=== PATIENT | male | born 1980 | race Two or more races ===

== ENCOUNTER → 2024-11-18 | Outpatient (CLI) | payer MEDICAID, SELFPAY ==
--- NOTE | 2024-11-18 10:34 | XR_ITS ---
Examination: Abdomen AP single view Technique: AP portable supine abdomen, single view Exam date and time: November 18, 2024, 1104 hours INDICATIONS: History flank pain kidney stones, left nephrostomy tube placed 6 weeks ago. FINDINGS: Left percutaneous nephrostomy tube left abdomen 9 mm calculus in distribution proximal left ureter Nonobstructive bowel gas pattern IMPRESSION: 9 mm calculus in distribution proximal left ureter
== END | disposition home or self-care (01) ==
LOC: CDIM 10:21
PROVIDERS: Referring Provider Surgery; Visit Provider Surgery
DX: N20.1 Calculus of ureter (principal)
CPT/HCPCS: 74018

== ENCOUNTER 2024-12-17 09:25 | Day surgery (SDC) | payer MEDICAID, SELFPAY ==
--- NOTE | 2024-12-16 10:19 | EKG_ITS ---
[facility] Test Date: 2024-12-16 Pat Name: ZAHRA CORTEZ Department: Room: - Gender: Male Obstetrics Gyn: ROYAL : 1980 Requested By: Ashwin Bello Order Number: [id number] Reading MD: Ashwin Bello Measurements Intervals [place] Rate: 67 P: 17 ME: 163 QRS: 57 QRSD: 88 T: 48 QT: 376 QTc: 397 Interpretive Statements SINUS RHYTHM No previous ECG available for comparison /store/S0/[id number]/ecg/[id number].pdf
[2024-12-16 10:32] VITALS: BMI 38.4
[2024-12-16 10:57] LABS: Collection Type, Urine Clean Catch
[2024-12-16 11:28] LABS: Basophils # (Auto) 0.0 Thou/mm3 (0.0-0.2); Basophils % (Auto) 1 % (0-2.5); Eosinophils # (Auto) 0.2 Thou/mm3 (0.0-0.5); Eosinophils % (Auto) 3 % (0-10); Hematocrit 42.3 % (41.0-53.0); Hemoglobin 14.1 g/dL (13.5-16.0); Immature Granulocytes Auto 0.02 Thou/mm3 (0.00-0.00); Lymphocytes # (Auto) 1.7 Thou/mm3 (1.0-4.8); Lymphocytes % (Auto) 26 % (10-50); Mean Corpuscular HGB Conc 33.3 g/dl (31.0-37.0); Mean Corpuscular Hemoglobin 29.2 pg (25.0-35.0); Mean Corpuscular Volume 88 fL (80-100); Monocytes # (Auto) 0.7 Thou/mm3 (0.0-0.8); Monocytes % (Auto) 11 % (0-12); Neutrophils # (Auto) 3.7 Thou/mm3 (1.8-7.7); Neutrophils % (Auto) 59 % (37-80); Nucleated Red Blood Cell # 0.00 Thou/mm3 (0.00-0.00); Nucleated Red Blood Cell % 0 /100 WBC (0); Platelet Count 283 Thou/mm3 (140-440); RDW Standard Deviation 39.2 fL (35.1-43.9); Red Blood Count 4.83 Miln/mm3 (4.50-5.90); White Blood Count 6.3 Thou/mm3 (3.8-10.6)
[2024-12-16 11:37] LABS: Anion Gap 10 (7-16); BUN/Creatinine Ratio 12 Ratio (12-20); Blood Urea Nitrogen 11 mg/dL (9-23); Calcium 9.6 mg/dL (8.3-10.6); Carbon Dioxide 26.7 mMol/L (20.0-31.0); Chloride 102 mMol/L (98-107); Creatinine (Component) 0.9 mg/dL (0.6-1.3); Estimated Creatinine Clearance 114.0 mL/min (>60); Glucose 92 mg/dL (74-106); Osmolality,Calculated 276 (275-295); Potassium 4.1 mMol/L (3.4-5.1); Sodium 139 mMol/L (136-145); eGFR > 60 See Note
--- NOTE | 2024-12-16 12:03 | ESHP_ITS ---
RE: ZAHRA CORTEZ : 1980 DATE OF ADMISSION: 12/16/2024 HISTORY OF PRESENT ILLNESS: A 44-year-old gentleman with history of left kidney stone. He went to the emergency room, has a left nephrostomy tube, history of urinary tract infection. The patient has a 9 mm left upper ureteral stone. Plan is cystoscopy, left ureteral stent insertion, and extracorporeal shock wave lithotripsy for the left upper ureteral stone. PAST SURGICAL HISTORY: Previous surgery is none. FAMILY HISTORY: He has 2 children. ALLERGIES: NONE KNOWN. PAST MEDICAL HISTORY: The patient does have a history of diabetes mellitus and history of hypertension. MEDICATIONS: 1. Bactrim. 2. Cephalexin. PHYSICAL EXAMINATION: HEENT: Normal. Neck: Supple. Lungs: Clear. CARDIOVASCULAR: Heart sounds are normal. Abdomen: Soft without new organomegaly. No guarding. No rigidity. Extremities: Normal. The patient does have a left-sided percutaneous nephrostomy tube. IMPRESSION: A 9 mm left upper ureteral stone with a left nephrostomy tube. PLAN: Cystoscopy, left ureteral stent insertion and extracorporeal shock wave lithotripsy for the left upper ureteral stone. DT: 11:54:54 TT: 12:01:00 Ref: [id number] - TID: [id number]
[2024-12-16 12:07] LABS: Bacteria,Urine Rare; Bilirubin,Urine Negative (Negative); Blood,Urine Negative (Negative); Clarity,Urine Clear (Clear/Hazy); Color,Urine Lt-Yellow (Lt Yel-Yel); Glucose, Urine Negative (Negative); Ketones,Urine Negative (Negative); Leukocyte Esterase,Urine Positive (Negative); Nitrite,Urine Negative (Negative); PH,Urine 6.0 (5.0-7.0); Protein,Urine Negative (Neg - Trace); RBC,Urine 2 /hpf (0-3); Specific Gravity,Urine 1.020 (1.001-1.035); Squamous Epithelial Cell,Urine < 1 /hpf (0-5); Urobilinogen,Urine Negative mg/dL (0.0-1.0); WBC,Urine 32 /hpf (0-5)
[2024-12-17] VITALS (10 sets, daily range): BP systolic 107–139; BP diastolic 60–91; PULSE 62–84; RESP 10–22; TEMP 36.3–36.6; O2SAT 93–100; BMI 38.0
--- NOTE | 2024-12-17 06:00 | XR_ITS ---
Examination: Abdomen AP single view Technique: AP portable supine abdomen, single view Exam date and time: December 17, 2024, 1027 hours INDICATIONS: History flank pain, kidney stones FINDINGS: 7 mm left renal calculus Left percutaneous nephrostomy drainage tube Nonobstructive bowel gas pattern IMPRESSION: 7 mm left renal calculus
[2024-12-17] MEDS: RINGERS LACTATED 1000 ML 1,000 ML 20 ML IV (10:20)
--- NOTE | 2024-12-17 14:12 | SUR.OPER ---
Power level 8, 3000 shocks Total fluoro time: 1 minute 32 seconds
--- NOTE | 2024-12-17 15:24 | SUR.PHASEI ---
1435: pt received from OR via [employer]. received report from JULIAN Sarkar and Wilmer Pinedo CRNA. pt sleepy at this time. no s/s of pain or discomfort. no s/s of resp. distress or discomfort. dressing noted from upper left side of abdomen from nephrostomy tube, removed nephrostomy tube, clean, dry and intact. noted redness surrounding, machine use for ESWL placed in the area. no swelling or bleeding noted.
--- NOTE | 2024-12-17 15:25 | SUR.PHASEII ---
1525: tolerate ice chips without any issues
--- NOTE | 2024-12-17 15:35 | SUR.PHASEII ---
Received report on pt. s/p surgery from Tara JORDAN. Pt. is AAOx3, c/o pain to groin area, will provide ordered pain medication, VSS, dressing to left lower lateral side of abdomen, quarter size area of red blood on dressing, assisted pt. with urinal, pt. was able to void.
[2024-12-17] MEDS: HYDROcodone/APAP 5/325 TABLET 1 TAB PO (16:01)
--- NOTE | 2024-12-17 16:25 | SUR.PHASEII ---
Pt. meets criteria for discharge, VSS, no c/o pain or nausea at this time, dressing to left lower lateral abd., CDI, IV discontinued without complications. Discharge instructions provided to pt. and pt.'s , verbalized understanding. Pt. escorted to vehicle via gurney with all of belongings by staff.
--- NOTE | 2024-12-17 18:09 | ESOP_ITS ---
RE: ZAHRA CORTEZ : 1980 DATE OF OPERATION: 12/17/2024 PREOPERATIVE DIAGNOSIS: Left upper ureteral stone, 9 mm in size. The patient has a left percutaneous nephrostomy. POSTOPERATIVE DIAGNOSIS: Left upper ureteral stone, 9 mm in size. The patient has a left percutaneous nephrostomy. PROCEDURE PERFORMED: Cystoscopy, left ureteral stent insertion, and left extracorporeal shockwave lithotripsy for the left upper ureteral stone. ANESTHESIA: General by Mr. Wilmer CRNA. INDICATION: The patient is a 44-year-old gentleman with a left upper ureteral stone, 9 mm in size. He has a left percutaneous nephrostomy. He is now scheduled to have the above procedure. Planned procedure, risks, and complications have been discussed with the patient. The patient understood them and agreed to proceed. DESCRIPTION OF PROCEDURE: After the patient was brought to the operating table, under adequate general anesthesia and in the dorsal lithotomy position, parts were prepped and draped in the usual fashion. Cystoscopy was then carried out which revealed adequate urethral meatus, normal-appearing urethra, and mildly enlarged prostate. Scope was introduced into the bladder. There are no intravesical stones or tumors. The ureteral orifices are found to be normal in position and appearance. An open-tip ureteral catheter was then introduced into the left ureteral orifice and was then advanced up to the left ureter all the way up to the obstruction. I could pass a guidewire through the ureteral catheter all the way up to the left kidney. Ureteral catheter was then removed and a 5 [place] x 26 cm ureteral stent was introduced over the guidewire under C-arm fluoroscopy control so as the proximal loop of the stent is lying in the left kidney and the distal loop is in the bladder. Scope was withdrawn. The patient was then placed on a Dornier Delta III lithotripsy machine. The left upper ureteral stone, which is a 9 mm in size, was given 3000 shocks at power level 8. The left percutaneous nephrostomy tube was removed and the dressing was applied. The patient tolerated the entire procedure well and left the room in good condition. DT: 14:15:22 TT: 18:08:00 Ref: [id number] - TID: [id number]
== END 2024-12-17 16:25 | disposition home or self-care (01) ==
PROVIDERS: Referring Provider Surgery; Visit Provider Surgery
PROC: (CPT 50590; principal; 2024-12-17 11:30)
PROC: (CPT 52282; 2024-12-17 11:30)
DX: N20.1 Calculus of ureter (principal); Z01.810 Encounter for preprocedural cardiovascular examination; Z93.6 Other artificial openings of urinary tract status; E11.9 Type 2 diabetes mellitus without complications; I10 Essential (primary) hypertension
CPT/HCPCS: 50590; 52332; 36415; 74018; 80048; 81001; 85025; 87077; 87086; 87186; 93005; A4217; A4649; J0131; J0694; J1885; J2250; J2704; J3010; J3490; J7120; A9270

== ENCOUNTER → 2024-12-29 | Outpatient (CLI) | payer MEDICAID, SELFPAY ==
--- NOTE | 2024-12-29 | XR_ITS ---
Examination: Abdomen AP single view Technique: AP portable supine abdomen, single view Exam date and time: December 29, 2024, 1211 hours, comparison December 17, 2024 INDICATIONS: History ureteral stone post stent placement December 31, 2024 FINDINGS: Left ureteral stent satisfactory position 9 mm calculus adjacent to the proximal portion of the left ureteral stent Nonobstructive bowel gas pattern IMPRESSION: 9 mm calculus adjacent to the upper portion of the left ureteral stent
== END | disposition home or self-care (01) ==
LOC: CDIM 11:47
PROVIDERS: Referring Provider Surgery; Visit Provider Surgery
DX: N20.1 Calculus of ureter (principal)
CPT/HCPCS: 74018

== ENCOUNTER → 2025-02-24 | Outpatient (CLI) | payer MEDICAID, SELFPAY ==
--- NOTE | 2025-02-24 10:56 | XR_ITS ---
Examination: Abdomen AP single view Technique: AP portable supine abdomen, single view Exam date and time: February 24, 2025, 1148 hours INDICATIONS: History kidney stones flank pain left ureteral stent placement FINDINGS: Stable position left ureteral stent compared with February 18, 2025 8 mm calculus adjacent to the upper portion of the stent Impression: Stable position left ureteral stent
== END | disposition home or self-care (01) ==
PROVIDERS: Referring Provider Surgery; Visit Provider Surgery
DX: R10.A0 Flank pain, unspecified side (principal); Z98.890 Other specified postprocedural states
CPT/HCPCS: 74018